=== PATIENT | male | born 1970 | race Hispanic/Latino ===

== ENCOUNTER 2023-06-07 13:10 | Emergency (ER) | payer SELFPAY ==
[2023-06-07 14:31] LABS: Absolute Lymphocytes (CBC) 1.7 K/uL (0.7-4.9); Lymphocytes % 23.8 % (15.3-44.8); MCV 90.1 fL (80-100); MPV 7.6 fL (7.6-11.3); Platelets 237 thou/uL (152-406); RBC Red Blood Cell Count 5.22 M/uL (4.33-5.43)
[2023-06-07] MEDS ORDERED: KETOROLAC 30 MG/ML INJ ONE (14:38)
[2023-06-07 14:51] LABS: Albumin 3.9 g/dL (3.4-5.0); Bilirubin Total 0.4 mg/dL (0.2-1.0); Potassium 3.8 mEq/L (3.5-5.1); Protein, Total 7.7 g/dL (6.4-8.2)
--- NOTE | 2023-06-07 15:31 | RAD REPORT ---
EXAM DESCRIPTION: CT - Stone Protocol - 06/07/2023 2:11 pm CLINICAL HISTORY: FLANK PAIN COMPARISON: No comparisons TECHNIQUE: Thin cut axial CT imaging of the abdomen and pelvis was performed without IV contrast. Mu ltiplanar reformats were generated and reviewed. All CT scans are performed using dose optimization technique as appropriate and may include automated exposure control or mA/KV adjustment according to patient size. FINDINGS: No suspicious findings in the lung bases. The liver, spleen, and pancreas show no suspicious findings. Gallbladder and biliary tree are also wi thout suspicious finding. Symmetric renal contour, with anterior rotation of the right kidney. No suspicious parenchymal findin gs within limits of noncontrast technique. No evidence of hydroureteronephrosis. Right renal midpole 2 millimeter nonobstructing calculus. No dilated bowel loops or bowel wall thickening. No free air, free fluid or inflammatory stranding. N o hernia, mass or bulky lymphadenopathy. The urinary bladder is suboptimally distended, limiting eval uation. No suspicious bony findings. IMPRESSION: 2 millimeter nonobstructing right renal midpole calculus. No other acute intra-abdominal process.
[2023-06-07 15:49] LABS: Specific Gravity 1.018 (1.005-1.030); Urine Bilirubin NEGATIVE (Negative); Urine Blood Negative (Negative); Urine Clarity Clear (Clear); Urine Color Light-Yellow (Yellow); Urine Glucose NEGATIVE (Negative); Urine Protein NEGATIVE (Negative); Urine Urobilinogen Normal (Normal); Urine pH 6.5 (5.0-7.0)
--- NOTE | 2023-06-07 16:03 | ER ---
Nurse's Notes [facility] Name: Sandoval Rob Age: 52 yrs Sex: Male : 1970 Arrival Date: 06/07/2023 Time: 13:10 Bed 8 Private MD: Diagnosis: Sprain of ligaments of thoracic spine Presentation: 06/07 13:44 Chief complaint: Patient states: LUQ pain onset 3 weeks ago. pt denies any Nausea cm10 vomiting or diarrhea. Coronavirus screen: Vaccine status: Patient reports receiving the 2nd dose of the covid vaccine. Client denies travel out of the [place] in the last 14 days. Ebola Screen: Patient denies travel to an Ebola-affected area in the 21 days before illness onset. No symptoms or risks identified at this time. Initial Sepsis Screen: Does the patient meet any 2 criteria? No. Patient's initial sepsis screen is negative. Does the patient have a suspected source of infection? No. Patient's initial sepsis screen is negative. Risk Assessment: Do you want to hurt yourself or someone else? Patient reports no desire to harm self or others. Onset of symptoms was June 07, 2023. 13:44 Method Of Arrival: Ambulatory cm10 13:44 Acuity: JANES 3 cm10 Triage Assessment: 13:46 General: Appears in no apparent distress. comfortable, Behavior is calm, cooperative. cm10 Neuro: No deficits noted. Level of Consciousness is awake, alert, obeys commands, Oriented to person, place, time, situation. Cardiovascular: No deficits noted. Patient's skin is warm and dry. Respiratory: No deficits noted. Airway is patent Respiratory effort is even, unlabored, Respiratory pattern is regular, symmetrical. Historical: - Allergies: 13:46 No Known Allergies; cm10 - Home Meds: 13:46 None [Active]; cm10 - PMHx: 13:46 None; cm10 - PSHx: 13:46 None; cm10 - Immunization history:: Adult Immunizations unknown. - Social history:: Smoking status: Patient denies any tobacco usage or history of. Screenin:15 [facility] ED Fall Risk Assessment (Adult) History of falling in the last 3 months, aa5 including since admission No falls in past 3 months (0 pts) Confusion or Disorientation No (0 pts) Intoxicated or Sedated No (0 pts) Impaired Gait No (0 pts) Mobility Assist Device Used No (0 pt) Altered Elimination No (0 pt) Score/Fall Risk Level 0 - 2 = Low Risk Oriented to surroundings, Maintained a safe environment, Educated pt \T\ family on fall prevention, incl call for assistance when getting out of bed. Abuse screen: Denies threats or abuse. Nutritional screening: No deficits noted. Tuberculosis screening: No symptoms or risk factors identified. Assessment: 14:15 General: Appears comfortable, Behavior is calm, cooperative. Pain: Complains of pain in aa5 anterior aspect of left lateral abdomen Pain currently is 0 out of 10 on a pain scale. at worst was 8 out of 10 on a pain scale. Quality of pain is described as sharp, Pain began 3 weeks ago Is continuous. Neuro: Level of Consciousness is awake, alert, obeys commands, Oriented to person, place, time, situation. Cardiovascular: Heart tones S1 S2 present Rhythm is regular. Respiratory: Airway is patent Respiratory effort is even, unlabored, Respiratory pattern is regular, symmetrical. GI: Abdomen is round non-distended, Bowel sounds present X 4 quads. Abd is soft and non tender X 4 quads. Patient currently denies diarrhea, nausea, vomiting. : Denies burning with urination, inability to void, urinary frequency. EENT: No signs and/or symptoms were reported regarding the EENT system. Derm: Skin is pink, warm \T\ dry. Musculoskeletal: Range of motion: intact in all extremities. 14:55 Reassessment: Patient is alert, oriented x 3, equal unlabored respirations, skin aa5 warm/dry/pink. Patient denies pain at this time. General: Appears comfortable. Vital Signs: 13:44 BP 117 / 83; Pulse 89; Resp 16 S; Temp 98.2(TE); Pulse Ox 97% on R/A; Weight 90.72 kg cm10 (R); Height 5 ft. 10 in. ; Pain 8/10; 13:44 Body Mass Index 28.70 (90.72 kg, 177.8 cm) cm10 13:44 Pain Scale: Adult cm10 ED Course: 13:11 Patient arrived in ED. rg4 13:20 Chasity Molina FNP [facility] jh7 13:20 Jason Webb MD is Attending Physician. 7 13:46 Triage completed. cm10 13:47 Arm band placed on Patient placed in an exam room, on a stretcher. cm10 14:00 Andree Navarro, RN is Primary Nurse. aa5 14:13 CT Stone Protocol In Process Unspecified. EDMS 14:15 Patient has correct armband on for positive identification. Bed in low position. Call aa5 light in reach. Side rails up X 1. Pulse ox on. NIBP on. 14:20 Initial lab(s) drawn, by me, sent to lab. Inserted saline lock: 20 gauge in right aa5 forearm, using aseptic technique. Blood collected. Administered Medications: 14:27 Drug: TORadol - Ketorolac IVP 15 mg IVP once Route: IVP; Site: right forearm; 5 Medication: 14:30 VIS not applicable for this client. aa5 Outcome: 16:03 Discharge ordered by . [facility] 16:35 Patient left the ED. rs5 Signatures: Dispatcher [employer] EDNJ Andree Navarro, RN RN aa5 Palak Thomas 4 Chasity Molina, PAPERHANGER SUPERVISOR PAPERHANGER SUPERVISOR [facility] Ag Herrera, RN RN rs5 Norma Negrete, RN RN 10
--- NOTE | 2023-06-07 16:03 | EDPHYS ---
Physician Documentation [facility] Name: Sandoval Rob Age: 52 yrs Sex: Male : 1970 Arrival Date: 06/07/2023 Time: 13:10 Bed 8 Private MD: ED Physician Jason Webb HPI: 06/07 13:46 This 52 yrs old Male presents to ER via Ambulatory with complaints of Flank jh7 Pain/side pain. 13:46 The patient complains of pain in the mid back area. The pain does not radiate. Onset: jh7 The symptoms/episode began/occurred 3 week(s) ago. Associated signs and symptoms: Pertinent negatives: diarrhea, dysuria, fever, nausea, pain radiating to the lower extremities, vomiting. Severity of pain: in the emergency department the pain is a 5 / 10. Historical: - Allergies: 13:46 No Known Allergies; cm10 - Home Meds: 13:46 None [Active]; cm10 - PMHx: 13:46 None; cm10 - PSHx: 13:46 None; cm10 - Immunization history:: Adult Immunizations unknown. - Social history:: Smoking status: Patient denies any tobacco usage or history of. ROS: 13:46 Constitutional: Negative for fever, chills, and weight loss, Eyes: Negative for injury, jh7 pain, redness, and discharge, Neck: Negative for injury, pain, and swelling, Cardiovascular: Negative for chest pain, palpitations, and edema, Respiratory: Negative for shortness of breath, cough, wheezing, and pleuritic chest pain, Abdomen/GI: Negative for abdominal pain, nausea, vomiting, diarrhea, and constipation, MS/Extremity: Negative for injury and deformity, Skin: Negative for injury, rash, and discoloration, Neuro: Negative for headache, weakness, numbness, tingling, and seizure, 13:46 : Positive for flank pain, of the left side, 13:46 All other systems are negative, Exam: 13:46 Constitutional: This is a well developed, well nourished patient who is awake, alert, jh7 and in no acute distress. Head/Face: Normocephalic, atraumatic. Eyes: Pupils equal round and reactive to light, extra-ocular motions intact. Lids and lashes normal. Conjunctiva and sclera are non-icteric and not injected. Cornea within normal limits. Periorbital areas with no swelling, redness, or edema. Neck: Trachea midline, no thyromegaly or masses palpated, and no cervical lymphadenopathy. Supple, full range of motion without nuchal rigidity, or vertebral point tenderness. No Meningismus. Cardiovascular: Regular rate and rhythm with a normal S1 and S2. No gallops, murmurs, or rubs. Normal PMI, no JVD. No pulse deficits. Respiratory: Lungs have equal breath sounds bilaterally, clear to auscultation and percussion. No rales, rhonchi or wheezes noted. No increased work of breathing, no retractions or nasal flaring. Back: No spinal tenderness. No costovertebral tenderness. Full range of motion. Skin: Warm, dry with normal turgor. Normal color with no rashes, no lesions, and no evidence of cellulitis. MS/ Extremity: Pulses equal, no cyanosis. Neurovascular intact. Full, normal range of motion. Neuro: Awake and alert, GCS 15, oriented to person, place, time, and situation. Normal gait. Vital Signs: 13:44 BP 117 / 83; Pulse 89; Resp 16 S; Temp 98.2(TE); Pulse Ox 97% on R/A; Weight 90.72 kg cm10 (R); Height 5 ft. 10 in. ; Pain 8/10; 13:44 Body Mass Index 28.70 (90.72 kg, 177.8 cm) cm10 13:44 Pain Scale: Adult cm10 MDM: 13:20 Patient medically screened. [facility] 15:40 Differential diagnosis: nephrolithiasis, pyelonephritis, UTI, diverticulitis. Data [facility] reviewed: vital signs, nurses notes, lab test result(s), radiologic studies, CT scan. I considered the following discharge prescriptions or medication management in the emergency department Medications were administered in the Emergency Department. See MAR. Counseling: I had a detailed discussion with the patient and/or guardian regarding the historical points, exam findings, and any diagnostic results supporting the discharge/admit diagnosis, to return to the emergency department if symptoms worsen or persist or if there are any questions or concerns that arise at home. Response to treatment: the patient's symptoms have markedly improved after treatment. 06/07 14:03 Order name: CBC with Diff; Complete Time: 14:53 [facility] 06/07 14:03 Order name: CMP; Complete Time: 14:53 [facility] 06/07 14:03 Order name: Lipase; Complete Time: 14:53 [facility] 06/07 15:21 Order name: Urinalysis w/ reflexes [facility] 06/07 14:03 Order name: CT Stone Protocol; Complete Time: 15:37 [facility] 06/07 14:03 Order name: IV Saline Lock; Complete Time: 14:23 [facility] 06/07 14:03 Order name: Labs collected and sent; Complete Time: 14:23 [facility] Administered Medications: 14:27 Drug: TORadol - Ketorolac IVP 15 mg IVP once Route: IVP; Site: right forearm; aa5 Disposition Summary: 06/07/23 16:03 Discharge Ordered Notes: Location: Home [facility] Problem: new [facility] Symptoms: have improved [facility] Condition: Stable [facility] Diagnosis - Sprain of ligaments of thoracic spine [facility] Followup: [facility] - With: Private Physician - When: 2 - 3 days - Reason: Recheck today's complaints Discharge Instructions: - Discharge Summary Sheet [facility] - Thoracic Strain [facility] Forms: - Medication Reconciliation Form [facility] - Thank You Letter [facility] - Patient Portal Instructions [facility] - Leadership Thank You Letter [facility] Prescriptions: - Naprosyn 500 mg Oral Tablet - take 1 tablet ORAL route 2 times per day take with food; 30 tablet; Refills: 0, [facility] Product Selection Permitted - Zanaflex 4 mg Oral Tablet - take 1 tablet ORAL route every 8 hours As needed; 20 tablet; Refills: 0, [facility] Product Selection Permitted Signatures: Dispatcher [employer] Andree Estrada, RN RN aa5 Chasity Molina, BUTT WELDER BUTT WELDER [facility] Norma Negrete, RN RN cm10
== END 2023-06-07 16:35 | disposition home or self-care (01) ==
LOC: ER 13:10
DX: S23.3XXA Sprain of ligaments of thoracic spine, initial encounter (principal)
CPT/HCPCS: 36415; 74176; 76377; 80053; 81003; 83690; 85025